=== PATIENT | female | born 1945 | race African-American/Black ===

== ENCOUNTER 2016-06-06 23:23 | Emergency (ER) | payer MEDICARE ==
[~2016-06-06] VITALS: Ht 154.9 cm; Wt 89.0 kg
[2016-06-07 00:44] LABS: BASOPHILS % 0.8 % (0.0-2.0); DIFFERENTIAL COMMENT 0; EOSINOPHILS % 1.4 % (0.0-5.0); HEMATOCRIT. 35.5 % (36.0-48.0); HEMOGLOBIN. 11.6 g/dL (12.0-16.0); LYMPHOCYTES % 34.6 % (20.0-50.0); MEAN CORPUSCULAR HEMOGLOBIN 24.8 pg (28.0-32.0); MEAN CORPUSCULAR HGB CONC 32.8 g/dL (31.0-37.0); MEAN CORPUSCULAR VOLUME 75.6 fL (81.0-99.0); MEAN PLATELET VOLUME 10.9 fl (7.4-10.4); MONOCYTES % 7.6 % (2.0-8.0); NEUTROPHILS % 55.6 % (40.0-76.0); PLATELET 114 x1000/uL (130-400); RED BLOOD CELL COUNT 4.69 mill/uL (4.2-5.4); RED CELL DISTRIBUTION WIDTH 15.2 % (11.6-14.6); WHITE BLOOD COUNT 10.5 x1000/uL (4.5-11.0)
[2016-06-07 00:50] LABS: CHLORIDE 105 mEq/L (98-107); INDEX HEMOLYSI 1 (1-3); INDEX ICTERIC 1 (1-4); INDEX LIPEMIC 1 (1-3)
[2016-06-07 00:53] LABS: INR 1.6; PROTHROMBIN TIME 16.9 sec
[2016-06-07 00:59] LABS: ALANINE AMINOTRANSFERASE 18 IU/L (13-61); ALBUMIN 3.4 g/dL (3.4-5.0); ANION GAP 14; CALCIUM 8.8 mg/dL (8.5-10.1); CARBON DIOXIDE 27 mEq/L (21-32); LIPASE 86 IU/L (73-393); UREA NITROGEN BLOOD 24 mg/dL (7-21); eGFR 32 mL/min (>60)
[2016-06-07 03:39] LABS: CLARITY URINE CLEAR (CLEAR); COLOR URINE YELLOW (YELLOW); GLUCOSE URINE NEGATIVE (NEGATIVE); KETONES URINE NEGATIVE (NEGATIVE); LEUKOCYTE ESTERASE URINE NEGATIVE (NEGATIVE); NITRITE URINE NEGATIVE (NEGATIVE); OCCULT BLOOD URINE NEGATIVE (NEGATIVE); PROTEIN URINE NEGATIVE (NEGATIVE); SPECIFIC GRAVITY URINE 1.016 (1.005-1.030); UROBILINOGEN URINE 0.2 E.U./dL (0.2-1.0)
[2016-06-07 04:00] VITALS: BP 120/68
== END 2016-06-07 05:39 | disposition home or self-care (01) ==
LOC: ER 23:25
DX: R10.31 Right lower quadrant pain (principal); E11.22 Type 2 diabetes mellitus with diabetic chronic kidney disease; J45.909 Unspecified asthma, uncomplicated; F32.9 Major depressive disorder, single episode, unspecified; F41.9 Anxiety disorder, unspecified; K58.9 Irritable bowel syndrome, unspecified; D57.1 Sickle-cell disease without crisis; I12.9 Hypertensive chronic kidney disease with stage 1 through stage 4 chronic kidney disease, or unspecified chronic kidney disease; N18.9 Chronic kidney disease, unspecified; N28.1 Cyst of kidney, acquired; D25.9 Leiomyoma of uterus, unspecified; Z88.6 Allergy status to analgesic agent; Z88.3 Allergy status to other anti-infective agents; Z88.2 Allergy status to sulfonamides
CPT/HCPCS: 36415; 71010; 74176; 80053; 81003; 83690; 85025; 85610; 99285

== ENCOUNTER 2016-08-31 00:35 | Emergency (ER) | payer MEDICARE ==
[~2016-08-31] VITALS: Ht 165.1 cm; Wt 88.0 kg
[2016-08-31] MEDS ORDERED: SODIUM CHLORIDE 0.9% 1,000 ML IV ONE (03:09)
[2016-08-31] MEDS ORDERED: ONDANSETRON HCL 4MG/2ML VIAL IV STA (03:09)
[2016-08-31] MEDS ORDERED: MORPHINE SULFATE 4 MG/ML CPJ (NOT FOR IM USE) IV STA (03:09)
[2016-08-31 03:38] LABS: BASOPHILS % 1.2 % (0.0-2.0); EOSINOPHILS % 0.7 % (0.0-5.0); HEMATOCRIT. 31.8 % (36.0-48.0); HEMOGLOBIN. 10.4 g/dL (12.0-16.0); MEAN CORPUSCULAR HEMOGLOBIN 23.8 pg (28.0-32.0); MEAN CORPUSCULAR VOLUME 72.7 fL (81.0-99.0); MEAN PLATELET VOLUME 10.7 fl (7.4-10.4); NEUTROPHILS % 72.1 % (40.0-76.0); PLATELET 142 x1000/uL (130-400); RED BLOOD CELL COUNT 4.38 mill/uL (4.2-5.4); RED CELL DISTRIBUTION WIDTH 15.5 % (11.6-14.6)
[2016-08-31 03:42] LABS: CHLORIDE 105 mEq/L (98-107)
[2016-08-31 03:50] LABS: CARBON DIOXIDE 25 mEq/L (21-32)
[2016-08-31 03:51] LABS: CLARITY URINE CLEAR (CLEAR); COLOR URINE DARK YELLOW (YELLOW); GLUCOSE URINE NEGATIVE (NEGATIVE); KETONES URINE NEGATIVE (NEGATIVE); LEUKOCYTE ESTERASE URINE 1+ (NEGATIVE); NITRITE URINE POSITIVE (NEGATIVE); OCCULT BLOOD URINE NEGATIVE (NEGATIVE); PROTEIN URINE 1+ (NEGATIVE); SPECIFIC GRAVITY URINE 1.016 (1.005-1.030)
[2016-08-31 05:57] VITALS: BP 145/50
== END 2016-08-31 06:02 | disposition home or self-care (01) ==
LOC: ER 00:35
DX: N39.0 Urinary tract infection, site not specified (principal); J45.909 Unspecified asthma, uncomplicated; I48.91 Unspecified atrial fibrillation; I12.9 Hypertensive chronic kidney disease with stage 1 through stage 4 chronic kidney disease, or unspecified chronic kidney disease; E11.22 Type 2 diabetes mellitus with diabetic chronic kidney disease; N18.3 Chronic kidney disease, stage 3 (moderate); M19.90 Unspecified osteoarthritis, unspecified site; Z88.1 Allergy status to other antibiotic agents; Z88.2 Allergy status to sulfonamides; Z88.6 Allergy status to analgesic agent
CPT/HCPCS: 36415; 71010; 74176; 80053; 81001; 83690; 85025; 93005; 96361; 96374; 96375; 99285; J2270; J2405; J7030

== ENCOUNTER 2016-10-05 23:56 | Emergency (ER) | payer MEDICARE ==
[~2016-10-05] VITALS: Ht 154.9 cm; Wt 90.0 kg
[2016-10-06] MEDS ORDERED: SODIUM CHLORIDE 0.9% 1,000 ML IV ONE (00:47)
[2016-10-06] MEDS ORDERED: MORPHINE SULFATE 4 MG/ML CPJ (NOT FOR IM USE) IV STA (00:47)
[2016-10-06] MEDS ORDERED: ONDANSETRON HCL 4MG/2ML VIAL IV STA (00:47)
[2016-10-06 01:23] LABS: BASOPHILS % 0.7 % (0.0-2.0); EOSINOPHILS % 0.5 % (0.0-5.0); HEMATOCRIT. 27.8 % (36.0-48.0); HEMOGLOBIN. 9.1 g/dL (12.0-16.0); LYMPHOCYTES % 18.6 % (20.0-50.0); MEAN CORPUSCULAR HEMOGLOBIN 23.3 pg (28.0-32.0); MEAN CORPUSCULAR VOLUME 71.4 fL (81.0-99.0); MEAN PLATELET VOLUME 10.9 fl (7.4-10.4); MONOCYTES % 8.8 % (2.0-8.0); NEUTROPHILS % 71.4 % (40.0-76.0); PLATELET 164 x1000/uL (130-400); RED BLOOD CELL COUNT 3.89 mill/uL (4.2-5.4); RED CELL DISTRIBUTION WIDTH 16.4 % (11.6-14.6)
[2016-10-06 01:26] LABS: CHLORIDE 104 mEq/L (98-107)
[2016-10-06 01:27] LABS: INR 1.5
[2016-10-06 01:35] LABS: CARBON DIOXIDE 26 mEq/L (21-32)
[2016-10-06 03:07] LABS: CLARITY URINE TURBID (CLEAR); COLOR URINE YELLOW (YELLOW); GLUCOSE URINE NEGATIVE (NEGATIVE); KETONES URINE NEGATIVE (NEGATIVE); LEUKOCYTE ESTERASE URINE 3+ (NEGATIVE); NITRITE URINE NEGATIVE (NEGATIVE); OCCULT BLOOD URINE 3+ (NEGATIVE); PROTEIN URINE 1+ (NEGATIVE); SPECIFIC GRAVITY URINE 1.011 (1.005-1.030); UROBILINOGEN URINE 0.2 E.U./dL (0.2-1.0)
[2016-10-06 04:28] VITALS: BP 126/61
== END 2016-10-06 04:46 | disposition home or self-care (01) ==
LOC: ER 10-06 00:03
DX: N39.0 Urinary tract infection, site not specified (principal); E11.9 Type 2 diabetes mellitus without complications; I10 Essential (primary) hypertension; I48.91 Unspecified atrial fibrillation; J45.909 Unspecified asthma, uncomplicated; M19.90 Unspecified osteoarthritis, unspecified site; Z88.0 Allergy status to penicillin; Z88.2 Allergy status to sulfonamides; Z88.6 Allergy status to analgesic agent; Z88.1 Allergy status to other antibiotic agents; Z88.8 Allergy status to other drugs, medicaments and biological substances
CPT/HCPCS: 36415; 80053; 81001; 83690; 85025; 85610; 87086; 93005; 96361; 96374; 96375; 99285; J2270; J2405; J7030

== ENCOUNTER 2016-11-08 23:48 | Observation (INO) | payer MEDICARE ==
[~2016-11-08] VITALS: Ht 165.1 cm; Wt 69.9 kg
[2016-11-09] MEDS ORDERED: SODIUM CHLORIDE 0.9% 1,000 ML IV ONE (00:18)
[2016-11-09 00:52] LABS: BASOPHILS % 0.6 % (0.0-2.0); EOSINOPHILS % 0.2 % (0.0-5.0); HEMATOCRIT. 25.4 % (36.0-48.0); HEMOGLOBIN. 8.2 g/dL (12.0-16.0); LYMPHOCYTES % 12.6 % (20.0-50.0); MEAN CORPUSCULAR HEMOGLOBIN 22.3 pg (28.0-32.0); MEAN PLATELET VOLUME 9.6 fl (7.4-10.4); MONOCYTES % 6.1 % (2.0-8.0); NEUTROPHILS % 80.5 % (40.0-76.0); PLATELET 178 x1000/uL (130-400); RED BLOOD CELL COUNT 3.68 mill/uL (4.2-5.4); RED CELL DISTRIBUTION WIDTH 18.9 % (11.6-14.6)
[2016-11-09 00:54] LABS: PLATELET ESTIMATE NORMAL
[2016-11-09 00:57] LABS: CHLORIDE 102 mEq/L (98-107)
[2016-11-09 01:06] LABS: CARBON DIOXIDE 23 mEq/L (21-32)
[2016-11-09 01:45] LABS: CLARITY URINE TURBID (CLEAR); COLOR URINE YELLOW (YELLOW); GLUCOSE URINE NEGATIVE (NEGATIVE); KETONES URINE NEGATIVE (NEGATIVE); LEUKOCYTE ESTERASE URINE 3+ (NEGATIVE); NITRITE URINE NEGATIVE (NEGATIVE); OCCULT BLOOD URINE 3+ (NEGATIVE); PROTEIN URINE 2+ (NEGATIVE); SPECIFIC GRAVITY URINE 1.016 (1.005-1.030); UROBILINOGEN URINE 0.2 E.U./dL (0.2-1.0)
[2016-11-09] MEDS ORDERED: LEVOFLOXACIN 750MG PREMIX 150 ML IV ONE (02:30)
[2016-11-09] MEDS ORDERED: MORPHINE SULFATE 4 MG/ML CPJ (NOT FOR IM USE) IV ONE (05:30)
[2016-11-09] MEDS ORDERED: ONDANSETRON HCL 4MG/2ML VIAL IV ONE (06:00)
[2016-11-09 09:00] VITALS: BP 114/42
[2016-11-09] MEDS ORDERED: ACETAMINOPHEN 650MG/20.3ML UDC PO PRN (11:00)
[2016-11-09] MEDS ORDERED: DEXTROSE 50% WATER 50ML SYRINGE IV PRN (11:00)
[2016-11-09] MEDS ORDERED: LISI40TA4 PO (11:21)
[2016-11-09] MEDS ORDERED: POTA10CA42 PO (11:23)
[2016-11-09] MEDS ORDERED: RIVA10TA PO (11:24)
[2016-11-09] MEDS ORDERED: FURO-151 PO (11:25)
[2016-11-09] MEDS ORDERED: ESCI20TA PO (11:27)
[2016-11-09] MEDS ORDERED: VERA180T PO (11:28)
[2016-11-09] MEDS ORDERED: NORT10CA PO (11:30)
[2016-11-09] MEDS ORDERED: CLON0.2T PO (11:30)
[2016-11-09] MEDS ORDERED: ATOR20TA65 PO (11:31)
[2016-11-09] MEDS ORDERED: MAGN64TA7 PO (11:32)
[2016-11-09] MEDS ORDERED: INSU100I28 SQ (11:33)
[2016-11-09] MEDS ORDERED: INSU100I13 SQ (11:33)
[2016-11-09] MEDS ORDERED: MONT10TA21 PO (11:34)
[2016-11-09] MEDS ORDERED: BACL-141 PO (11:35)
[2016-11-09] MEDS ORDERED: OXYC10TA48 PO (11:35)
[2016-11-09] MEDS ORDERED: FLUT15.88 NS (11:36)
[2016-11-09] MEDS ORDERED: BUDE0.5A3 IH (11:37)
[2016-11-09] MEDS ORDERED: ALBU2.5V13 NEB (11:38)
[2016-11-09] MEDS ORDERED: LORA0.5T2 PO (11:39)
[2016-11-09] MEDS ORDERED: MECL-115 PO (11:40)
[2016-11-09] MEDS ORDERED: MUPI22OI2 TP (11:41)
[2016-11-09 12:00] VITALS: BP 128/61
[2016-11-09] MEDS: INSULIN LISPRO 100 UNITS/ML SUBCUT SCH ×3 (12:40→20:49)
[2016-11-09] MEDS: BLOOD SUGAR DIAGNOSTIC STRIP TEST SCH ×3 (12:50→20:45)
[2016-11-09 16:43] VITALS: BP 170/69
[2016-11-09] MEDS ORDERED: LEVOFLOXACIN 750MG PREMIX 150 ML IV SCH (17:30)
[2016-11-09] MEDS ORDERED: CLONIDINE 0.1MG TABLET PO PRN (17:30)
[2016-11-09] MEDS ORDERED: ENOXAPARIN 30MG/0.3ML SYR SUBCUT SCH (18:00)
[2016-11-09] MEDS: HYDROCODONE/ACETAMINOPHEN 5/325MG TABLET PO PRN (18:40)
[2016-11-09 20:00] VITALS: BP 127/47
[2016-11-09] MEDS: RIVAROXABAN 15 MG TABLET PO SCH (20:43)
[2016-11-09] MEDS ORDERED: ATORVASTATIN CALCIUM 20MG TABLET PO SCH (21:00)
[2016-11-09] MEDS ORDERED: RIVAROXABAN 10 MG TABLET PO SCH (21:30)
[2016-11-10] VITALS (7 sets, daily range): BP systolic 123–145; BP diastolic 54–70
[2016-11-10] MEDS ORDERED: LEVOFLOXACIN 250MG PREMIX 50 ML IV SCH (03:00)
[2016-11-10] MEDS: HYDROCODONE/ACETAMINOPHEN 5/325MG TABLET PO PRN ×3 (03:25→16:45)
[2016-11-10] MEDS: BLOOD SUGAR DIAGNOSTIC STRIP TEST SCH ×3 (06:26→17:10)
[2016-11-10] MEDS: INSULIN LISPRO 100 UNITS/ML SUBCUT SCH ×3 (06:26→17:23)
[2016-11-10] MEDS ORDERED: VERAPAMIL HCL MT SCH (09:00)
[2016-11-10] MEDS ORDERED: VERAPAMIL HCL 180MG ER TABLET PO SCH (09:00)
[2016-11-10] MEDS ORDERED: MEDICATION NOT ON FORMULARY EA (Escitalopram Oxalate (Lexapro) 1 TAB) PO SCH (09:00)
[2016-11-10] MEDS ORDERED: CITALOPRAM HYDROBROMIDE 40MG TABLET PO SCH (09:00)
[2016-11-10 12:33] LABS: BASOPHILS % 0.8 % (0.0-2.0); EOSINOPHILS % 0.8 % (0.0-5.0); HEMATOCRIT. 24.7 % (36.0-48.0); HEMOGLOBIN. 8.1 g/dL (12.0-16.0); LYMPHOCYTES % 22.1 % (20.0-50.0); MEAN CORPUSCULAR HEMOGLOBIN 22.7 pg (28.0-32.0); MEAN CORPUSCULAR VOLUME 68.8 fL (81.0-99.0); MEAN PLATELET VOLUME 9.4 fl (7.4-10.4); MONOCYTES % 6.7 % (2.0-8.0); NEUTROPHILS % 69.6 % (40.0-76.0); PLATELET 219 x1000/uL (130-400); RED BLOOD CELL COUNT 3.59 mill/uL (4.2-5.4); RED CELL DISTRIBUTION WIDTH 18.6 % (11.6-14.6)
[2016-11-10] MEDS: RIVAROXABAN 15 MG TABLET PO SCH (16:18)
[2016-12-23] MEDS ORDERED: OXYC-93 PO (23:09)
[2016-12-27] MEDS ORDERED: LEVO500T2 PO (17:47)
[2016-12-27] MEDS ORDERED: LEVO500T89 PO (17:48)
== END 2016-11-10 17:40 | disposition home or self-care (01) ==
LOC: ER 23:48 → INTOOBSV 11-09 02:43 → 8WST 11-09 02:43 → EDBEDREQTM 11-09 02:50 → EDBEDREQ 11-09 02:50 → ENRESERV 11-09 07:01
PROVIDERS: ADMIT Internal Medicine; ATTEND Internal Medicine
DX: A41.9 Sepsis, unspecified organism (principal); E11.9 Type 2 diabetes mellitus without complications; I10 Essential (primary) hypertension; I48.91 Unspecified atrial fibrillation; J45.909 Unspecified asthma, uncomplicated; F41.9 Anxiety disorder, unspecified; M19.90 Unspecified osteoarthritis, unspecified site; F32.9 Major depressive disorder, single episode, unspecified; Z79.01 Long term (current) use of anticoagulants; Z87.440 Personal history of urinary (tract) infections
CPT/HCPCS: 36415; 74176; 80053; 81001; 82962; 83605; 85025; 87040; 87086; 96361; 96365; 96366; 96375; 99285; G0378; J1956; J2270; J2405; J7030; J7040; J1650